=== PATIENT | male | born 1960 | race Hispanic/Latino ===

== ENCOUNTER 2023-07-27 19:42 | Emergency (ER) | payer OTHER ==
[~2023-07-27] VITALS: Ht 165.1 cm; Wt 97.5 kg
[~2023-07-27 19:42] MED LIST: LIDOCAINE 1% 10 ML MULTIDOSE VIAL IJ ONE
[2023-07-27] MEDS ORDERED: LIDOCAINE 1% 10 ML MULTIDOSE VIAL IJ ONE (20:51)
[2023-07-27] MEDS: LIDOCAINE HCL 1% LOCAL INJ 20 ML VIAL INJ ONE (20:58)
[2023-07-27] MEDS ORDERED: AUGMENTIN 500-1 EACH PO (21:47)
[2023-07-27] MEDS ORDERED: HYDROCODON-ACE1 EAC9 PO (21:47)
[2023-07-28 01:28] VITALS: BP 167/98; PULSE 67; RESP 16; TEMP 98.7; O2SAT 100
== END 2023-07-27 22:06 | disposition home or self-care (01) ==
LOC: ER 19:49
DX: Z48.01 Encounter for change or removal of surgical wound dressing (principal); I10 Essential (primary) hypertension; E11.9 Type 2 diabetes mellitus without complications
CPT/HCPCS: 99283